=== PATIENT | male | born 1950 | race Hispanic/Latino ===

== ENCOUNTER → 2023-09-15 06:21 | Day surgery (SDC) | payer MEDICARE, SELFPAY ==
[2023-09-15 08:53] LABS: Glucose - Point of Care 86 mg/dl (70-99)
== END ==
LOC: GI 06:21
PROVIDERS: ATTENDING PHYSICIAN Internal Medicine
DX: K22.2 Esophageal obstruction (principal); R13.10 Dysphagia, unspecified
CPT/HCPCS: 43249; 82962

== ENCOUNTER → 2024-02-07 06:17 | Day surgery (SDC) | payer MEDICARE, SELFPAY ==
[2024-02-07 09:38] LABS: Glucose - Point of Care 94 mg/dl (70-99)
== END ==
LOC: GI 06:17
PROVIDERS: ATTENDING PHYSICIAN Internal Medicine
DX: K22.2 Esophageal obstruction (principal); R13.10 Dysphagia, unspecified; K91.89 Other postprocedural complications and disorders of digestive system
CPT/HCPCS: 43249; 82962

== ENCOUNTER 2024-04-30 06:15 | Day surgery (SDC) | payer MEDICARE, SELFPAY ==
[2024-04-30 08:19] LABS: Glucose - Point of Care 87 mg/dl (70-99)
== END 2024-04-30 09:26 | disposition home or self-care (01) ==
LOC: GI 06:15
PROVIDERS: ATTENDING PHYSICIAN Internal Medicine
PROC: 0D728ZZ Dilation of Middle Esophagus, Via Natural or Artificial Opening Endoscopic (ICD-10-PCS; 2024-04-30)
DX: K22.2 Esophageal obstruction (principal)
CPT/HCPCS: 43249; 82962

== ENCOUNTER 2024-07-25 06:14 | Day surgery (SDC) | payer MEDICARE, SELFPAY ==
[2024-07-25 07:57] LABS: Glucose - Point of Care 86 mg/dl (70-99)
== END 2024-07-25 09:26 | disposition home or self-care (01) ==
LOC: GI 06:14
PROVIDERS: ATTENDING PHYSICIAN Internal Medicine
DX: K22.2 Esophageal obstruction (principal)
CPT/HCPCS: 43249; 82962

== ENCOUNTER 2024-10-24 06:25 | Day surgery (SDC) | payer MEDICARE, SELFPAY ==
[2024-10-24 08:58] LABS: Glucose - Point of Care 91 mg/dl (70-99)
== END 2024-10-24 10:28 | disposition home or self-care (01) ==
LOC: GI 06:25
PROVIDERS: ATTENDING PHYSICIAN Internal Medicine
DX: R13.14 Dysphagia, pharyngoesophageal phase (principal); K44.9 Diaphragmatic hernia without obstruction or gangrene; K22.2 Esophageal obstruction
CPT/HCPCS: 43249; 82962

== ENCOUNTER 2025-01-20 06:17 | Day surgery (SDC) | payer MEDICARE, SELFPAY | END 2025-01-20 09:41 | disposition home or self-care (01) | LOC: GI 06:17 | PROVIDERS: ATTENDING PHYSICIAN Internal Medicine | DX: K22.2 Esophageal obstruction (principal); K21.00 Gastro-esophageal reflux disease with esophagitis, without bleeding; R13.10 Dysphagia, unspecified | CPT/HCPCS: 43249; 43239; 88305; 88342 ==

== ENCOUNTER 2025-05-14 06:21 | Day surgery (SDC) | payer MEDICARE, SELFPAY ==
[2025-05-14 08:20] LABS: Glucose - Point of Care 78 mg/dl (70-99)
== END 2025-05-14 09:53 | disposition home or self-care (01) ==
LOC: GI 06:21
PROVIDERS: ATTENDING PHYSICIAN Internal Medicine
DX: D50.9 Iron deficiency anemia, unspecified (principal); R13.10 Dysphagia, unspecified; K22.2 Esophageal obstruction
CPT/HCPCS: 43249; 43239; 82962; 88305; 88342